=== PATIENT | female | born 1950 | race Two or more races ===

== ENCOUNTER 2017-06-26 11:42 | Outpatient (CLI) | payer MEDICARE, OTHER ==
--- NOTE | 2017-06-27 13:21 | Mammography Report ---
DIGITAL SCREENING MAMMOGRAM: 06/26/2017 CLINICAL INDICATION: A 66-year-old for screening. COMPARISON: 06/2016, 12/2015, 05/2015, 04/2014, 03/2013, 02/2012, 02/2011, 12/2009. TECHNIQUE: Routine CC and MLO projections were obtained of the breasts. FINDINGS: Scattered fibroglandular tissue is present within the breasts. There are no dominant zack s, suspicious microcalcifications, or secondary signs of malignancy. In comparison to the previous st udies, there are no significant changes. ASSESSMENT: NO MAMMOGRAPHIC EVIDENCE OF MALIGNANCY. NO SIGNIFICANT INTERVAL CHANGES. RECOMMENDATION: Screening mammography is recommended annually. BI-RADS category 1 - negative. STANDARD QUALIFYING STATEMENTS 1. This examination was reviewed with the aid of Computed-Aided Detection (CAD). 2. A negative or benign imaging report should not delay biopsy if clinically suspicious findings are present. Consider surgical consultation if warranted. More than 5% of cancers are not identified by i maging. 3. Dense breasts may obscure an underlying neoplasm. JOB #: [id number] EXT JOB #:[id number]
== END 2017-06-26 11:43 | disposition home or self-care (01) ==
LOC: DI 11:42
PROVIDERS: ATTEND Family Medicine
DX: Z12.31 Encounter for screening mammogram for malignant neoplasm of breast (principal)
CPT/HCPCS: 77067

== ENCOUNTER 2018-01-24 10:55 | Outpatient (CLI) | payer MEDICARE, OTHER ==
--- NOTE | 2018-01-25 18:48 | Ultrasound Report ---
EXAM: ABDOMEN ULTRASOUND EXAM DATE: 01/24/2018 12:14 PM. CLINICAL HISTORY: ABDOMINAL PAIN. COMPARISON: 05/30/2015. TECHNIQUE: Real-time scanning was performed with static images obtained. FINDINGS: Liver: Normal in size and echotexture. There are 2 echogenic lesions in the right lobe measuring 2.0 x 1.7 x 1.9 cm and 1.9 x 1.3 x 1.1 cm, similar to before. 17.2 cm. Main portal vein flow: Hepatopetal . Gallbladder: Normal. No stones, wall thickening, or sonographic Munguia's sign. Biliary System: Common bile duct measures 5 mm. No intrahepatic or extrahepatic ductal dilatation. Pancreas: Visualized portion is unremarkable. Kidneys: Right: 11.7 cm longitudinally. Inferior pole cyst measures 1.9 x 1.7 x 1.8. A parapelvic cyst measure s 1.6 x 1.2 x 1.5. No contour-deforming mass, stones, or hydronephrosis. Left: 10.9 cm longitudinally. Normal. No contour-deforming mass, stones, or hydronephrosis. Spleen: 7.3 cm. Suboptimally evaluated but unremarkable.. Aorta and Inferior Vena Cava: Unremarkable. Other: None. IMPRESSION: 1. No acute findings or obvious cause of pain. 2. Echogenic liver lesions are not significantly changed and most likely represent hemangiomas. [facility] Referring Provider Line: [phone] SITE ID: [id number]
== END 2018-01-24 10:56 | disposition home or self-care (01) ==
LOC: DI 10:55
PROVIDERS: ATTEND Internal Medicine
DX: R10.9 Unspecified abdominal pain (principal); K76.9 Liver disease, unspecified
CPT/HCPCS: 76700

== ENCOUNTER 2018-06-15 08:00 | Outpatient (CLI) | payer MEDICARE ==
[2018-06-15 19:55] LABS: THYROID STIMULATING HORMONE < 0.08 uIU/mL (0.34-5.60)
[2018-06-15 19:58] LABS: FREE T4 (FREE THYROXINE) 1.02 ng/dL (0.58-1.64)
== END 2018-06-15 08:01 | disposition home or self-care (01) ==
LOC: LAB.WCP 08:00
PROVIDERS: ATTEND Physician Assistant
DX: E89.0 Postprocedural hypothyroidism (principal)
CPT/HCPCS: 36415; 84436; 84439; 84443

== ENCOUNTER 2018-12-24 14:18 | Outpatient (CLI) | payer MEDICARE, OTHER ==
--- NOTE | 2018-12-25 08:44 | Mammography Report ---
Reason: SCREENING MAMMO Procedure Date: 12/24/2018 Accession Number: [id number] / [id number] Procedure: [facility] - Screening Mammo w/Jacob CPT Code: FULL RESULT: EXAM: Screening Mammo w/Jacob DATE: 12/24/2018 3:32 PM CLINICAL HISTORY: Screening encounter. No reported risk factors. TECHNIQUE: Bilateral CC and MLO views were obtained. COMPARISON: 06/26/2017 through 05/30/2015. FINDINGS: The breasts demonstrate scattered fibroglandular densities bilaterally. 3 isodense nodules in the retroconal Space of the right breast are stable dating back to 2014 and therefore typically benign. No suspicious masses, clustered microcalcifications, or regions of architectural distortion are identified. IMPRESSION: Benign findings RECOMMENDATION: Routine annual screening unless otherwise clinically indicated. BIRADS CATEGORY 2: Benign findings STANDARD QUALIFYING STATEMENTS: 1. This examination was not reviewed with the aid of Computer-Aided Detection (CAD). 2. A negative or benign imaging report should not delay biopsy if clinically suspicious findings are present. Consider surgical consultation if warrented. More than 5% of cancers are not identified by imaging. 3. Dense breasts may obscure an underlying neoplasm. 4. This examination was reviewed with the aid of 3D breast imaging (tomosynthesis).
== END 2018-12-24 14:19 | disposition home or self-care (01) ==
LOC: DI 14:18
PROVIDERS: ATTEND Internal Medicine
DX: Z12.31 Encounter for screening mammogram for malignant neoplasm of breast (principal)
CPT/HCPCS: 77063; 77067

== ENCOUNTER 2019-06-23 15:25 | Outpatient (CLI) | payer MEDICARE, OTHER ==
--- NOTE | 2019-06-25 00:15 | XRAY Report ---
Reason: L HIP PAIN Procedure Date: 06/23/2019 Accession Number: [id number] / [id number] Procedure: XR - Pelvis 1 View CPT Code: FULL RESULT: EXAM: PELVIS RADIOGRAPHY. EXAM DATE: 06/23/2019 03:39 PM. CLINICAL HISTORY: Left hip pain. COMPARISON: None. TECHNIQUE: 1 view. FINDINGS: Bones: Normal. No fracture or bone lesion. Joints: The visualized hip, pubis symphysis, and sacroiliac joints are preserved. No subluxation. Soft Tissues: Normal. No soft tissue swelling. IMPRESSION: Normal pelvis radiography. [facility]
== END 2019-06-23 15:26 | disposition home or self-care (01) ==
LOC: DI 15:25
PROVIDERS: ATTEND Physician Assistant Medical
DX: M25.552 Pain in left hip (principal)
CPT/HCPCS: 72170

== ENCOUNTER 2020-12-14 15:15 | Outpatient (CLI) | payer MEDICARE, OTHER | END 2020-12-14 15:27 | LOC: LAB.R 15:15 | PROVIDERS: ATTEND Family Medicine | DX: R35.0 Frequency of micturition (principal) | CPT/HCPCS: 87086 ==

== ENCOUNTER 2021-01-30 10:33 | Outpatient (CLI) | payer MEDICARE, OTHER ==
--- NOTE | 2021-01-31 13:21 | Mammography Report ---
BILATERAL DIGITAL SCREENING MAMMOGRAM 3D/2D: 01/30/2021 CLINICAL: Routine screening. Comparison is made to exams dated: 12/24/2018 mammogram, 06/26/2017 mammogram, and 07/09/2016 mammogram - [facility]. There are scattered fibroglandular elements in both breasts. No significant masses, calcifications, or other findings are seen in either breast. There has been no significant interval change. IMPRESSION: NEGATIVE There is no mammographic evidence of malignancy. A 1 year screening mammogram is recommended. This exam was interpreted at Station ID: [id number]. NOTE: For mammograms, a report in lay terms will be sent to the patient. Approximately 15% of breast malignancies will not be visualized mammographically. In the management of a palpable breast mass, a negative mammogram must not discourage biopsy of a clinically suspicious lesion. Electronically Signed By: Martín Rodriguez M.D. ar/paolarad:01/30/2021 11:22:32 ACR BI-RADS Category 1: Negative 3341F PARENCHYMAL PATTERN: (A) - The breast(s) demonstrate(s) scattered fibroglandular densities. BI-RADS CATEGORY: (1) - 1 RECOMMENDATION: (ANNUAL) - Recommend routine annual screening mammography. [id number] 1 year screening LATERALITY: (B)
== END 2021-01-30 10:34 | disposition home or self-care (01) ==
LOC: DI.N 10:33
PROVIDERS: ATTEND Physician Assistant Medical
DX: Z12.31 Encounter for screening mammogram for malignant neoplasm of breast (principal)

== ENCOUNTER 2021-08-02 10:44 | Outpatient (CLI) | payer MEDICARE, OTHER ==
--- NOTE | 2021-08-02 12:09 | XRAY Report ---
PROCEDURE: Chest 2 View X-Ray INDICATIONS: LEFT POSTERIOR RIB PAIN S/P FALL TECHNIQUE: 2 view(s) of the chest. COMPARISON: None. FINDINGS: Surgical changes and devices: None. Lungs and pleura: No pleural effusions or pneumothorax. Lungs are clear. Mediastinum: Mediastinal contours are normal. Heart size is normal. Bones and chest wall: No suspicious bony abnormalities. Soft tissues appear unremarkable. IMPRESSION: No acute cardiopulmonary pathology. No obvious rib fracture is identified on this chest radiograph. If indicated, dedicated rib series ca n be done for further evaluation. Reviewed by: Trav Jorge MD on 08/02/2021 12:08 PM PDT Approved by: Trav Jorge MD on 08/02/2021 12:08 PM PDT Station ID: [id number]
== END 2021-08-02 10:45 | disposition home or self-care (01) ==
LOC: DI.N 10:44
PROVIDERS: ATTEND Physician Assistant
DX: R07.81 Pleurodynia (principal)

== ENCOUNTER 2023-02-05 13:03 | Outpatient (CLI) | payer MEDICARE, OTHER ==
--- NOTE | 2023-02-06 10:48 | Mammography Report ---
BILATERAL DIGITAL SCREENING MAMMOGRAM 3D/2D: 02/05/2023 CLINICAL: Routine screening. Comparison is made to exams dated: 01/30/2021 mammogram, 12/24/2018 mammogram, 06/26/2017 mammogram, 07/09 mammogram, and 01/01/2016 mammogram - [facility]. There are scattered areas of fibroglandular density in both breasts (category b / 25%-50% glandular t issue). No significant masses, calcifications, or other findings are seen in either breast. There has been no significant interval change. IMPRESSION: NEGATIVE There is no mammographic evidence of malignancy. A 1 year screening mammogram is recommended. Based on the Tyrer Cuzick model (a risk assessment model) the patients lifetime risk is 2.6% and her 10 year risk is 2.4%. According to the ACR, ACS, and NCCN guidelines, an annual breast MRI exam mary g with mammogram is recommended if the patients lifetime risk is 20% or greater. This exam was interpreted at Station ID: [id number]. NOTE: For mammograms, a report in lay terms will be sent to the patient. Approximately 15% of breast malignancies will not be visualized mammographically. In the management of a palpable breast mass, a negative mammogram must not discourage biopsy of a clinically suspicious lesion. Electronically Signed By: Tye pederson/mario:02/05/2023 17:02:45 letter sent: No_Letter ACR BI-RADS Category 1: Negative 3341F PARENCHYMAL PATTERN: (A) - The breast(s) demonstrate(s) scattered fibroglandular densities. BI-RADS CATEGORY: (1) - 1 Mammogram [id number] 1 year screening LATERALITY: (B)
== END 2023-02-05 13:04 | disposition home or self-care (01) ==
LOC: DI 13:03
PROVIDERS: ATTEND Student in an Organized Health Care Education/Training Program
DX: Z12.31 Encounter for screening mammogram for malignant neoplasm of breast (principal)